=== PATIENT | male | born 1960 | race Hispanic/Latino ===

== ENCOUNTER → 2018-01-26 | Outpatient (CLI) | payer MEDICAID ==
[~2018-01-26] MED LIST: ALBU2.5V2 IH; ALBU6.7H IH; AMLO1TAB12 PO; ATOR20TA65 PO; CANA300T PO; EZET10 PO; IBUP-2077 PO; LORA10TA7 PO; METF-444 PO; MOME17N NS; NAPR-1023 PO; RANI150T7 PO; TAMS0.4C32 PO
== END | disposition home or self-care (01) ==
LOC: RAH 12:17
PROVIDERS: ATTEND Urology
DX: C61 Malignant neoplasm of prostate (principal)
CPT/HCPCS: 78306; A9503

== ENCOUNTER 2018-04-27 19:55 | Emergency (ER) | payer MEDICAID ==
[2018-04-27] MEDS ORDERED: ONDANSETRON HCL 4 MG/2 ML VIAL ONE (20:46)
[2018-04-27] MEDS ORDERED: DEXAMETHASONE SOD PHOSPHATE 10MG/ML 1ML VIAL ONE (20:46)
[2018-04-27] MEDS ORDERED: MORPHINE SULFATE 4 MG/1ML SYG ONE (20:47)
[2018-04-27 20:48] LABS: BASOPHILS % (AUTO) 0.3 % (0.0-5.0); EOSINOPHILS % (AUTO) 3.8 % (0.0-8.0); HEMATOCRIT 40.8 % (42-54); LYMPHOCYTES % (AUTO) 12.5 % (21.0-51.0); MEAN CORPUSCULAR HEMOGLOBIN 31.1 pg (27.0-33.0); MEAN CORPUSCULAR HGB CONC 33.3 g/dL (32.0-36.0); MEAN CORPUSCULAR VOLUME 93.5 fL (79-99); MONOCYTES % (AUTO) 10.2 % (3.0-13.0); NEUTROPHILS % (AUTO) 73.2 % (40.0-77.0); PLATELET COUNT (AUTO) 176 K/uL (130-400); RED BLOOD CELL COUNT(AUTO) 4.37 MIL/uL (4.50-6.20); RED CELL DISTRIBUTION WIDTH 13.6 % (11.0-15.5); WHITE BLOOD COUNT (AUTO) 4.9 K/uL (4.8-10.8)
[2018-04-27] MEDS ORDERED: IPRATROPIUM/ALBUTEROL SULFATE 3 ML SOLUTION IH ONE (20:56)
[2018-04-27 21:08] LABS: RAPID GROUP A STREP NEGATIVE (NEGATIVE)
[2018-04-27 21:15] LABS: B-TYPE NATRIURETIC PEPTIDE 8 pg/mL (0-100)
[2018-04-27 21:20] LABS: CREATININE 1.1 mg/dL (0.5-1.5); POTASSIUM 3.8 mmol/L (3.5-5.1)
[2018-04-27 21:25] LABS: ALBUMIN 3.3 g/dL (3.5-5.0); BILIRUBIN,TOTAL 0.8 mg/dL (0.2-1.0); TOTAL PROTEIN, SERUM 7.1 g/dL (6.0-8.3)
== END 2018-04-27 22:56 | disposition home or self-care (01) ==
LOC: EDH 19:55
DX: R06.00 Dyspnea, unspecified (principal); R05 Cough; R09.81 Nasal congestion; R07.89 Other chest pain; J44.9 Chronic obstructive pulmonary disease, unspecified; E11.9 Type 2 diabetes mellitus without complications; E78.5 Hyperlipidemia, unspecified; I50.9 Heart failure, unspecified; Z85.46 Personal history of malignant neoplasm of prostate; Z72.0 Tobacco use
CPT/HCPCS: 36415; 70490; 71045; 80053; 83880; 84484; 85025; 87804 ×2; 87880; 93005; 94640; 96374; 96375; 99284; J1100; J2270; J2405